=== PATIENT | female | born 1935 | race Caucasian/White ===

== ENCOUNTER 2016-12-28 19:33 | Emergency (ER) | payer BC ==
[~2016-12-28] VITALS: Ht 160 cm; Wt 78.7 kg
[~2016-12-28 19:33] MED LIST: ATIVAN0.5 M1 GT; ATIVAN0.5 MG PO; BUTALB-ACETAMI1 EACH PO; CELEBREX200 MG PO; DARVOCET-N 1001 EAC1 PO; DIOVAN320 MG PO; DIOVAN80 MG PO; DYAZIDE, MA1 CAPSULE PO; FIBERCON625 MG PO; HYDROXYZINE HCL25 M1 PO; LEVAQUIN750 MG PO; LOPROX 0.77% CR30 GM TP; OSCAL 250 W/VI250 MG PO; PRESERVISION S1 EACH PO; PREVACID30 MG PO; RESTASIS 01 DROP/0.4 BOTH EYES; TESSALON PERLE100 MG PO
[2016-12-28 20:28] LABS: HEMATOCRIT 40.7 % (36.0-46.0); MCH 28.6 PG (29.0-34.0); MCHC 32.4 G/DL (30.0-36.0); MCV 88.3 FL (83-99); MEAN PLAT.VOLUME 9.9 uM^3 (9.5-12.4); PLATELET COUNT 210 K/uL (156-360); RBC DIS.WIDTH-CV 12.9 % (11.8-14.6); RBC DIS.WIDTH-SD 41.6 % (39-53); RED BLOOD COUNT 4.61 M/uL (3.80-5.20); WHITE BLOOD COUNT 7.5 K/uL (4.1-10.2)
[2016-12-28 20:42] LABS: CHLORIDE 105 mEq/L (99-109); POTASSIUM 4.8 mEq/L (3.7-5.4); SODIUM 140 mEq/L (136-147)
[2016-12-28 20:43] LABS: GLUCOSE 111 mg/dL (70-99)
[2016-12-28 20:45] LABS: ANION GAP 12 MEQ/L (2-14)
[2016-12-28 20:47] LABS: GFR ESTIMATE (CALCULATED) 33 mL/min/
[2016-12-28 20:48] LABS: UREA NITROGEN (BUN) 24 mg/dL (9-23)
[2016-12-28] MEDS ORDERED: ANUSOL1 SUPP PR (22:22)
[2016-12-28 22:41] VITALS: BP 124/79
== END 2016-12-28 22:42 | disposition home or self-care (01) ==
LOC: EME 19:33
DX: K92.2 Gastrointestinal hemorrhage, unspecified (principal); K64.9 Unspecified hemorrhoids; E78.5 Hyperlipidemia, unspecified; I10 Essential (primary) hypertension; K21.9 Gastro-esophageal reflux disease without esophagitis; Z87.891 Personal history of nicotine dependence
CPT/HCPCS: 80048; 85027; 86900; 86901; 99281; 99284